=== PATIENT | male | born 1950 | race Caucasian/White ===

== ENCOUNTER 2018-02-04 10:26 | Outpatient (CLI) | payer MEDICARE | END 2018-02-04 10:27 | disposition home or self-care (01) | LOC: BICRAD 10:26 | PROVIDERS: ATTEND Family Medicine | DX: M54.6 Pain in thoracic spine (principal); M54.5 Low back pain; M19.90 Unspecified osteoarthritis, unspecified site; M41.9 Scoliosis, unspecified | CPT/HCPCS: 36415; 72072; 72100; 80053; 81001; 82306; 83735; 84443; 85025; 85652; 86140 ==

== ENCOUNTER 2018-03-09 15:31 | Outpatient (CLI) | payer MEDICARE | END 2018-03-09 15:32 | disposition home or self-care (01) | LOC: BICMRI 15:31 | PROVIDERS: ATTEND Family Medicine | DX: M48.56XA Collapsed vertebra, not elsewhere classified, lumbar region, initial encounter for fracture (principal); M54.6 Pain in thoracic spine; M54.5 Low back pain; R93.7 Abnormal findings on diagnostic imaging of other parts of musculoskeletal system; M54.10 Radiculopathy, site unspecified; M47.896 Other spondylosis, lumbar region | CPT/HCPCS: 72148 ==

== ENCOUNTER 2023-10-01 13:55 | Outpatient (CLI) | payer MEDICARE, OTHER | END 2023-10-01 13:56 | disposition home or self-care (01) | LOC: SCSRAD 13:55 | PROVIDERS: ATTEND Family Medicine | DX: M54.50 Low back pain, unspecified (principal); S32.050D Wedge compression fracture of fifth lumbar vertebra, subsequent encounter for fracture with routine healing; M47.816 Spondylosis without myelopathy or radiculopathy, lumbar region; M51.36 Other intervertebral disc degeneration, lumbar region; M51.34 Other intervertebral disc degeneration, thoracic region; M51.35 Other intervertebral disc degeneration, thoracolumbar region; M25.78 Osteophyte, vertebrae | CPT/HCPCS: 72100 ==

== ENCOUNTER 2024-05-18 13:08 | Outpatient (CLI) | payer MEDICARE, OTHER | END 2024-05-18 13:09 | disposition home or self-care (01) | LOC: SCSRAD 13:08 | PROVIDERS: ATTEND Family Medicine | DX: M25.511 Pain in right shoulder (principal); W19.XXXA Unspecified fall, initial encounter ==

== ENCOUNTER 2025-06-13 09:34 | Outpatient (CLI) | payer MEDICARE, OTHER | END 2025-06-13 09:35 | disposition home or self-care (01) | LOC: SCSBT 09:34 | PROVIDERS: ATTEND Specialist | DX: S32.050A Wedge compression fracture of fifth lumbar vertebra, initial encounter for closed fracture (principal); S32.040A Wedge compression fracture of fourth lumbar vertebra, initial encounter for closed fracture; M80.08XA Age-related osteoporosis with current pathological fracture, vertebra(e), initial encounter for fracture; M85.851 Other specified disorders of bone density and structure, right thigh | CPT/HCPCS: 77080 ==